=== PATIENT | male | born 1955 | race Caucasian/White ===

== ENCOUNTER 2017-02-06 08:08 | Inpatient (IN) | payer OTHER ==
[~2017-02-06] VITALS: Ht 177.8 cm; Wt 136.5 kg
[~2017-02-06 08:08] MED LIST: ACET1CAP18 PO; AMLO5TAB2 PO; FISH500C PO; MULT-135 PO
[2017-02-08] MEDS ORDERED: META48.53 PO (10:28)
[2017-02-08] MEDS ORDERED: IRON27TA PO (10:42)
[2017-02-11] MEDS ORDERED: LACTATED RINGER'S 1000 ML INJ 1,000 ML ONE (05:39)
[2017-02-11] MEDS ORDERED: DEXAMETHASONE SOD PHOS 20 MG/5 ML VIAL ONE (05:39)
[2017-02-11] MEDS ORDERED: VANCOMYCIN HCL 1000 MG VIAL ONE (05:39)
[2017-02-11] MEDS ORDERED: SODIUM CHLOR 0.9% 250 ML INJ 250 ML ONE (05:39)
[2017-02-11] MEDS ORDERED: VANCOMYCIN 1000 MG/NS 250 ML (for <70 kg) IV SCH ×2 (05:45)
[2017-02-11] MEDS ORDERED: CHLORHEXIDINE GLUCONATE 2 % 1 PACK (2 CLOTHS) TOP ONE (05:45)
[2017-02-11] MEDS ORDERED: DEXAMETHASONE SOD PHOS 4 MG/ML VIAL IV SCH (05:45)
[2017-02-11] MEDS ORDERED: POVIDONE IODINE 5% (ANTISEPSIS KIT) 4 APPLICATIONS TOPICAL ONE (05:45)
[2017-02-11 05:50] VITALS: BP 140/88; PULSE 82; RESP 20; TEMP 97.2; O2SAT 97
[2017-02-11] MEDS ORDERED: INSULIN HUMAN REGULAR 1,000 UNITS/10 ML VIAL SQ PRN (06:00)
[2017-02-11] MEDS ORDERED: CLINDAMYCIN INJ 900 MG in SODIUM CHLORIDE 0.9% INJ 100 ML IV SCH (06:00)
[2017-02-11] MEDS ORDERED: EXPAREL PERI-ARTICULAR INJECTION (TOTAL VOL. 60 ML) NERV BLOCK SCH ×2 (06:00)
[2017-02-11] MEDS ORDERED: LACTATED RINGER'S 1000 ML IV SCH (06:00)
[2017-02-11] MEDS ORDERED: METOPROLOL TARTRATE 25 MG TAB PO PRN (06:00)
[2017-02-11] MEDS ORDERED: SODIUM CHLORID 0.9% 500 ML IV SCH (06:00)
[2017-02-11] MEDS ORDERED: EXPAREL PERI-ARTICULAR INJECTION (TOTAL VOL. 60 ML) P-ARTICULR SCH ×2 (07:00)
[2017-02-11] MEDS ORDERED: TRANEXAMIC ACID IV SCH (07:00)
[2017-02-11] MEDS ORDERED: TRANEXAMIC PERI-ARTICULAR 3,000 MG/NS 100 ML P-ARTICULR SCH ×2 (07:00)
[2017-02-11] MEDS ORDERED: SODIUM CHLORIDE 0.9% IV SCH (07:00)
[2017-02-11] MEDS ORDERED: ROPIVACAINE PERI-ARTICULAR INJECTION. PERIART SCH ×5 (07:00)
[2017-02-11] MEDS ORDERED: CLINDAMYCIN PHOS 900 MG/6 ML VIAL ONE (07:21)
[2017-02-11] MEDS ORDERED: SODIUM CHLORIDE 0.9% INJ 100 ML ONE (07:22)
[2017-02-11] MEDS ORDERED: HYDR-3288 PO (07:28)
[2017-02-11] MEDS ORDERED: ASPI81CH37 CHEW (07:29)
[2017-02-11] MEDS ORDERED: ENOX40P SQ (07:29)
[2017-02-11] MEDS ORDERED: SODIUM CHLORIDE 0.9% FLUSH 5 ML FLUSH IVF PRN (07:30)
[2017-02-11] MEDS ORDERED: ZOLPIDEM TARTRATE 5 MG TAB PO PRN (07:30)
[2017-02-11] MEDS ORDERED: NALOXONE HCL 0.4 MG/ML AMP IV PRN (07:30)
[2017-02-11] MEDS ORDERED: Post-op Orders (for Pharmacy) MISC XX ONE (07:30)
[2017-02-11] MEDS ORDERED: MIDAZOLAM HCL 5 MG/5 ML VIAL ONE (07:57)
[2017-02-11] MEDS ORDERED: BISACODYL 10 MG SUPP PR PRN (08:00)
[2017-02-11] MEDS ORDERED: ACETAMINOPHEN/HYDROcodone 325 MG/7.5 MG TAB PO PRN ×2 (08:00)
[2017-02-11] MEDS ORDERED: MORPHINE SULFATE 4 MG/ML INJ IV PUSH PRN (08:00)
[2017-02-11] MEDS ORDERED: MAGNESIUM HYDROXIDE SUSP 30 ML CUP PO PRN (08:00)
[2017-02-11] MEDS ORDERED: ONDANSETRON HCL 4 MG/2 ML VIAL IVP PRN (08:00)
[2017-02-11] MEDS ORDERED: diphenhydrAMINE HCL 50 MG/ML VIAL IV PRN (08:00)
[2017-02-11] MEDS ORDERED: ALUMINUM/MAGNESIUM/SIMETH 30 ML CUP PO PRN (08:00)
[2017-02-11] MEDS ORDERED: GENTAMICIN SULFATE 80 MG/2 ML VIAL ONE (08:30)
[2017-02-11] MEDS: SODIUM CHLORIDE 0.9% FLUSH 5 ML FLUSH IVF SCH ×2 (09:00→20:22)
[2017-02-11] MEDS: amLODIPine BESYLATE 5 MG TAB PO SCH (09:00)
[2017-02-11] MEDS ORDERED: MORPHINE SULFATE 4 MG/ML INJ ONE (12:17)
[2017-02-11] MEDS ORDERED: fentaNYL CITRATE 250 MCG/5 ML AMP ONE (12:17)
[2017-02-11] MEDS: SODIUM CHLOR 0.9% 1000 ML INJ 1,000 ML IV SCH ×2 (12:18→20:26)
[2017-02-11] MEDS ORDERED: *morphine SULFATE 8 MG/ML PERIprocedure ONLY ONE (12:18)
[2017-02-11] MEDS ORDERED: BUPIVACAINE LIPOSOME PF 1.3% 20 ML VIAL ONE (12:33)
[2017-02-11] MEDS ORDERED: DEXAMETHASONE SOD PHOS PF 10 MG/ML VIAL IV ONE (12:33)
--- NOTE | 2017-02-11 12:50 | RADRPT ---
EXAM DATE/TIME: 02/11/2017 11:54 [facility] COMPARISON: No previous studies available for comparison. INDICATIONS : Post-op total right knee. MEDICAL HISTORY : None. SURGICAL HISTORY : Total knee replacement, right. ENCOUNTER: Initial ACUITY: 1 day PAIN SCORE: Non-responsive. LOCATION: Right Knee FINDINGS: Two view examination of the right knee demonstrates total knee arthroplasty. The components are appro priately positioned. Expected regional soft tissue emphysematous changes. No fracture. CONCLUSION: Appropriate postoperative appearance of the right knee status post total arthroplasty. Alexi Mcfarland MD on February 11, 2017 at 12:48 Board Certified Radiologist. This report was verified electronically.
[2017-02-11] MEDS ORDERED: PROPOFOL 200 MG/20 ML AMP IV ONE (13:00)
[2017-02-11] MEDS ORDERED: LACTATED RINGER'S 1000 ML INJ 1,000 ML IV ONE (13:00)
[2017-02-11] MEDS ORDERED: NEOSTIGMINE 3 MG/3 ML SYR IV ONE (13:00)
[2017-02-11] MEDS ORDERED: ONDANSETRON HCL 4 MG/2 ML VIAL IV PUSH ONE (13:00)
[2017-02-11] MEDS ORDERED: DO NOT ADM ANY ANTICOAGULANT DRUGS XX PRN (13:45)
[2017-02-11 14:15] VITALS: BP 105/71; PULSE 90; RESP 22; TEMP 96.5; O2SAT 95
--- NOTE | 2017-02-11 15:28 | PD.CONS ---
[facility] Request[facility] By Dr. Guzman Reason for Consult Medical management Primary Care Physician Tucker Pang MD Diagnoses: History of Present Illness The patient is a 61-year-old male who is presenting to the hospital for an elective right knee replacement. He says in 1989 he dropped 2 tons of machinery on his right knee and he required surgery which removed the cartilage out of that joint. He has done well for a while but he says over the past 5 years his right knee started to hurt him again. He says he did not try physical therapy or any steroid injections. He has been taking Tylenol for pain control. He says that his pain on average was a 7 out of 10 in severity. He says he got to the point where he was only walking 100 feet before he has to take a break and sit down. He says he has been able to go up and down stairs. The patient was seen following surgery and he said his pain was controlled. He had no acute complaints at this time. 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 Double hernia repair when he was a child Right knee surgery Active Ordered Medications Current Medications Medications (Trade) Dose Ordered Sig/Cesar Route Start Time Stop Time Status Last Admin (Betadine 7.5% Scrub) 1 applic ONCE TOP 02/11/17 05:45 02/14/17 05:44 (Hibiclens 4% Top Soln) 1 applic ONCE TOP 02/11/17 05:45 02/14/17 05:44 Amlodipine Besylate 5 mg 5 mg DAILY PO 02/11/17 09:00 (NS 1000 ml Inj) 1,000 ml @ 100 mls/hr Q10H IV 02/11/17 08:00 02/11/17 12:18 (NS Flush) 2 ml UNSCH PRN IVF 02/11/17 07:30 IV Flush 2 ml 2 ml BID IVF 02/11/17 09:00 (Vancomycin Inj/ NS 250 ml Inj) 250 ml @ 250 mls/hr Q12H IV 02/11/17 20:00 02/12/17 08:59 (Lovenox Inj) 40 mg Q24H SQ 02/12/17 11:00 (Morphine Inj) 3 mg Q3H PRN IV PUSH 02/11/17 08:00 (Deming 7.5-325 Mg) 1 tab Q4H PRN PO 02/11/17 08:00 (Deming 7.5-325 Mg) 2 tab Q4H PRN PO 02/11/17 08:00 (Theragran M Tab) 1 tab BID PO 02/12/17 21:00 04/13/17 20:59 (Zofran Inj) 4 mg Q6H PRN IVP 02/11/17 08:00 (Colace) 100 mg BID PO 02/12/17 21:00 (Mag-Al Plus Susp Liq) 30 ml Q6H PRN PO 02/11/17 08:00 (Ambien) 5 mg HS PRN PO 02/11/17 07:30 (Dulcolax Supp) 10 mg DAILY PRN TX 02/11/17 08:00 (Milk Of Magnesia Liq) 30 ml DAILY PRN PO 02/11/17 08:00 (Narcan Inj) 0.4 mg UNSCH PRN IV 02/11/17 07:30 (Benadryl Inj) 25 mg Q6H PRN IV 02/11/17 08:00 Miscellaneous Information ALL NURSING DEPARTME... UNSCH PRN XX 02/11/17 13:45 02/12/17 13:44 Family History The patient's father has diabetes Social History The patient does not smoke, drink or use illicit drugs. Physical Exam Vital Signs Vital Signs Date Time Temp Pulse Resp B/P Pulse Ox O2 Delivery O2 Flow Rate FiO2 02/11/17 14:15 96.5 90 22 105/71 95 02/11/17 13:15 97.9 94 16 147/83 94 Nasal Cannula 2 02/11/17 13:00 91 16 156/81 94 02/11/17 12:45 93 16 160/91 94 02/11/17 12:30 90 16 166/87 95 02/11/17 12:15 92 18 163/86 96 Nasal Cannula 2 02/11/17 12:00 92 18 157/91 99 02/11/17 11:45 92 12 167/100 97 Simple Mask 6 02/11/17 11:39 99.0 100 12 172/100 90 Simple Mask 6 02/11/17 05:50 97.2 82 20 140/88 97 Physical Exam GENERAL: This is a well-nourished, well-developed patient, in no apparent distress. SKIN: No rashes, ecchymoses or lesions. Cool and dry. HEAD: Atraumatic. Normocephalic. No temporal or scalp tenderness. EYES: Pupils equal round and reactive. Extraocular motions intact. No scleral icterus. No injection or drainage. ENT: Nose without bleeding, purulent drainage or septal hematoma. Throat without erythema, tonsillar hypertrophy or exudate. Uvula midline. Airway patent. NECK: Trachea midline. No JVD or lymphadenopathy. Supple, nontender, no meningeal signs. CARDIOVASCULAR: Regular rate and rhythm without murmurs, gallops, or rubs. RESPIRATORY: Clear to auscultation. Breath sounds equal bilaterally. No wheezes , rales, or rhonchi. GASTROINTESTINAL: Abdomen soft, non-tender, nondistended. No hepato-splenomegaly , or palpable masses. No guarding. MUSCULOSKELETAL: Right knee is immobilizer. Ice packs in place. Slightly tender to palpation. NEUROLOGICAL: Awake and alert. Cranial nerves II through XII intact. Motor and sensory grossly within normal limits. Five out of 5 muscle strength in all muscle groups. Normal speech. PSYCH: Mood and affect appropriate. Laboratory Laboratory Tests Test 02/11/17 05:55 Blood Type O POSITIVE Antibody Screen NEGATIVE Imaging Last Impressions Knee X-Ray 02/11/17 0726 Signed Impressions: Service Date/Time: Saturday, February 11, 2017 11:54 - CONCLUSION: Appropriate postoperative appearance of the right knee status post total arthroplasty. Alexi Mcfarland MD Assessment and Plan Assessment and Plan Right knee replacement Has had chronic right knee pain since an accident in 1989. S/p surgery 02/11. Tolerated procedure well. - pain control with a bowel regimen. - physical therapy. - follow CBC. - incentive spirometry. - weight bearing, wound care and anticoagulation per orthopedic surgery. HTN On amlodipine as an outpt. BP likely exacerbated by pain. - pain control. - continue amlodipine. - Vasotec as needed. PPx: Per orthopedic surgery. Discussed Condition With Pt, pt's family, nurse. Klever Hinojosa DO Feb 11, 2017 15:28
[2017-02-11] MEDS ORDERED: ENALAPRILAT 1.25 MG/ML VIAL IV PUSH PRN (15:30)
[2017-02-11] MEDS: MAGNESIUM HYDROXIDE SUSP 30 ML CUP PO SCH ×2 (15:45→20:23)
[2017-02-11 16:00] VITALS: BP 127/95; PULSE 94; RESP 21; TEMP 96.6; O2SAT 94
[2017-02-11 19:50] VITALS: O2SAT 98
[2017-02-11] MEDS ORDERED: METOCLOPRAMIDE HCL 10 MG/2 ML VIAL IV PRN (20:00)
[2017-02-11 20:19] VITALS: BP 133/88; PULSE 85; RESP 22; TEMP 96.3; O2SAT 95
[2017-02-11] MEDS: VANCOMYCIN INJ 1,000 MG in SODIUM CHLOR 0.9% 250 ML INJ 250 ML IV SCH (20:22)
[2017-02-11] MEDS: HYDROmorphone HCL 4 MG TAB PO PRN (20:24)
[2017-02-12 00:24] VITALS: BP 104/78; PULSE 87; RESP 24; TEMP 96.5; O2SAT 97
[2017-02-12] MEDS: BENZOCAINE-MENTHOL (SUGAR FREE) 15 MG-3.6 MG LOZENGE BUCCAL PRN ×2 (01:10→14:43)
[2017-02-12] MEDS: HYDROmorphone HCL 4 MG TAB PO PRN ×4 (02:38→22:21)
[2017-02-12] MEDS: SODIUM CHLOR 0.9% 1000 ML INJ 1,000 ML IV SCH ×2 (04:00→10:07)
[2017-02-12 04:26] VITALS: BP 124/77; PULSE 84; RESP 21; TEMP 96.7; O2SAT 96
[2017-02-12] MEDS: CHLORHEXIDINE GLUCONATE 4% SOLN 120 ML BTL TOP SCH (05:45)
[2017-02-12] MEDS: POVIDONE IODINE 7.5% SCRUB 118 ML BOTTLE TOP SCH (05:45)
[2017-02-12 06:08] LABS: HEMATOCRIT 37.8 % (39.0-51.0); MEAN CELL VOLUME 87.1 FL (80.0-100.0); MEAN CORPUSCULAR HEMOGLOBIN 30.4 PG (27.0-34.0); PLATELET COUNT 197 TH/MM3 (150-450); RED BLOOD COUNT 4.34 MIL/MM3 (4.50-5.90); RED CELL DISTRIBUTION WIDTH 13.7 % (11.6-17.2); REVIEW FLAG FINAL; WHITE BLOOD COUNT 15.9 TH/MM3 (4.0-11.0)
[2017-02-12 06:32] LABS: BICARBONATE 27.5 MEQ/L (21.0-32.0); POTASSIUM 4.3 MEQ/L (3.5-5.1)
[2017-02-12 08:00] VITALS: BP 142/77; PULSE 90; RESP 18; TEMP 97.7; O2SAT 95
--- NOTE | 2017-02-12 08:52 | PD.ORT.PN ---
Subjective Post Op Day #: 1 Subjective Remarks pain under control with dilaudid. Objective Vitals Vital Signs Date Time Temp Pulse Resp B/P Pulse Ox O2 Delivery O2 Flow Rate FiO2 02/12/17 08:00 97.7 90 18 142/77 95 02/12/17 07:10 Room Air 02/12/17 04:26 96.7 84 21 124/77 96 02/12/17 00:24 96.5 87 24 104/78 97 02/11/17 20:19 96.3 85 22 133/88 95 02/11/17 19:50 98 Nasal Cannula 2.00 02/11/17 19:26 Nasal Cannula 3.00 02/11/17 16:00 96.6 94 21 127/95 94 02/11/17 14:15 96.5 90 22 105/71 95 02/11/17 13:15 97.9 94 16 147/83 94 Nasal Cannula 2 02/11/17 13:00 91 16 156/81 94 02/11/17 12:45 93 16 160/91 94 02/11/17 12:30 90 16 166/87 95 02/11/17 12:15 92 18 163/86 96 Nasal Cannula 2 02/11/17 12:00 92 18 157/91 99 02/11/17 11:45 92 12 167/100 97 Simple Mask 6 02/11/17 11:39 99.0 100 12 172/100 90 Simple Mask 6 I/O 02/11/17 02/11/17 02/11/17 02/12/17 02/12/17 02/12/17 07:00 15:00 23:00 07:00 15:00 23:00 Intake Total 1490 ml 1054 ml 1200 ml Output Total 775 ml 200 ml 700 ml Balance 715 ml 854 ml 500 ml Intake Oral 240 ml 240 ml 360 ml IV Total 814 ml 840 ml Other 1250 ml Output Urine Total 175 ml 200 ml 700 ml Estimated Blood Loss 100 ml Other 500 ml # Bowel Movements 0 0 Result Diagram: 02/12/1733 02/12/17532 Objective Remarks in bed, nad dressing c/d/i neg homans nvi Assessment & Plan Ortho Post Op Day #: 1 Problem List: (1) Primary localized osteoarthrosis, lower leg Assessment and Plan s/p R TKA wbat daily dressing changes lovenox d/c planning to snf rx in chart 3008 signed f/up dr. reid 2 weeks Rod Kirkpatrick Feb 12, 2017 08:52
--- NOTE | 2017-02-12 08:53 | HHI.DCPOC ---
Discharge Care Plan Diagnosis: (1) Primary localized osteoarthrosis, lower leg Your Health Problems Are: Difficulty with ADL Goals to Promote Your Health * To prevent worsening of your condition and complications * To maintain your health at the optimal level Directions to Meet Your Goals Take your medications as prescribed Follow your dietary instruction Follow activity as directed Keep your appointments as scheduled Take your immunizations and boosters as scheduled If your symptoms worsen call your PCP, if no PCP go to Urgent Care Center or Emergency Room Smoking is Dangerous to Your Health. Avoid second hand smoke Call the 24-hour hour crisis hotline for domestic abuse at Rod Kirkpatrick Feb 12, 2017 08:53
[2017-02-12] MEDS ORDERED: CPMMACHINE (08:55)
[2017-02-12] MEDS ORDERED: WALKER WHEELS/F1 MIS (08:55)
[2017-02-12] MEDS ORDERED: COMMODE 3-IN-11 MIS (08:55)
[2017-02-12] MEDS: SENNOSIDES 8.6 MG TAB PO SCH (10:00)
[2017-02-12] MEDS: MAGNESIUM HYDROXIDE SUSP 30 ML CUP PO SCH ×2 (10:01→22:21)
[2017-02-12] MEDS: amLODIPine BESYLATE 5 MG TAB PO SCH (10:01)
[2017-02-12] MEDS: VANCOMYCIN INJ 1,000 MG in SODIUM CHLOR 0.9% 250 ML INJ 250 ML IV SCH (10:02)
[2017-02-12] MEDS: SODIUM CHLORIDE 0.9% FLUSH 5 ML FLUSH IVF SCH ×2 (10:03→22:21)
--- NOTE | 2017-02-12 10:33 | MP ---
cc: ALICIA FIERRO M.D. DATE OF SURGERY: 02/11/2017 PREOPERATIVE DIAGNOSIS Right knee osteoarthritis. POSTOPERATIVE DIAGNOSES Right knee osteoarthritis. PROCEDURE Right total knee arthroplasty. SURGEON Dr. Alicia Fierro [employer] DIRECT[employer] Alicia Kirkpatrick PA-C ANESTHESIA General with an adductor canal block. ESTIMATED BLOOD LOSS 400 cc. TOURNIQUET TIME 68 minutes at 300 mmHg. COMPLICATIONS None. IMPLANTS USED DePuy Attune size 8 posterior stabilized femoral component, size 7 rotating platform tibia baseplate, size 41 mm patella, size 7 mm polyethylene tibial insert. JUSTIFICATION The patient is a 61-year-old male with a history of severe end-stage osteoarthritis involving the right knee. He has severe disabling pain with standing, walking, ambulation and weightbearing activities, even severe pain at rest. He has failed greater than three months of non-operative conservative treatment to include medication therapy, injections, ambulatory assistive aids, home exercise program, activity modification and weight loss attempts. X-rays of the right knee reveal severe end-stage osteoarthritis, [id number]-im-[id number] joint space narrowing, subchondral sclerosis, subchondral cysts, osteophyte formation with varus deformity. The patient was counseled as to the risks, benefits and alternatives of a total knee arthroplasty. Risks were discussed which include but are not limited to anesthesia, bleeding, infection, damage to nerves and blood vessels, pain, stiffness, failure of components, blood clots, pulmonary embolism and even . The patient states his pain is severe. He favored the benefits over the risks and did wish to proceed with surgery. PROCEDURE IN DETAIL Written consent was obtained. The patient was identified by name, taken to the operating room and placed supine on the operating table. General anesthesia was administered as well as 900 mg of IV clindamycin and one gram of IV vancomycin. He does have a penicillin allergy. A well-padded tourniquet was placed on the right thigh. The right lower extremity was prepped and draped using isopropyl alcohol, Hibiclens solution and ChloraPrep solution. A timeout was performed. An Esmarch bandage was used to exsanguinate the right lower extremity. The tourniquet was inflated to 300 mmHg. A longitudinal incision was made over the anterior aspect of the right knee and a medial parapatellar arthrotomy was performed. The patella was everted. A patella resection guide was used to resect 10 mm of patella. A size 41 mm guide was placed. Three drill holes were placed and the 41 mm trial fit well. Attention was turned to the femur where an intramedullary guide was placed. The guide was set to remove 11 mm of distal femur 5 degrees off the anatomic valgus axis alignment. The patient did have a significant flexion contracture. An oscillating saw was used to perform the distal femoral cut. Attention was turned to the tibia where an extramedullary tibial guide was used to resect 5 mm off the lowest portion of the medial tibial plateau. The tibial guide was pinned in place and the tibial cut was performed. The 5 mm spacer block showed full extension. Attention was turned back to the femur where an AP sizing block measured a size 8. The anterior reference 3 degree external rotation guide was used to pin a size [address] Anterior, posterior and chamfer cuts were performed. A size 8 PCL box guide was pinned in place. The PCL was box cut with an oscillating saw. The medial and lateral meniscus remnants were removed as well as bone and soft tissue debris from the posterior portion of the knee. A size 7 tibia baseplate was pinned in place. The tibia was drilled and punched. The trial components were evaluated and final components cemented in place. With the 7 mm tibial insert the leg could achieve full extension to 0 degrees and flexion to approximately 140. There was no evidence of tibial lift-off. Varus-valgus balance appeared appropriate and symmetric. The patella was noted to track centrally. The tourniquet was deflated. Bovie cautery was used for hemostasis. The surgical wound was thoroughly irrigated with sterile saline pulse lavage antibiotic-impregnate solution. The arthrotomy incision was closed with #1 Vicryl suture, the subcutaneous layer with 2-0 Vicryl suture. Skin was closed with Dermabond. Sterile dressing was applied. The patient tolerated the procedure with no intraoperative complications noted. Alicia Kirkpatrick, physician commercial real estate assistant certified, was present during the entire procedure to include patient positioning and the procedure itself. The medical necessity of a physician commercial real estate assistant was indicated in this case due to the complexity of the procedure. He assisted with appropriate patient positioning and manipulation of the leg, and also traction of muscle, tendon, bone and neurovascular structures. He assisted with resection of bone and implantation of the prosthetic replacement. MD RICA Oreilly/DONALD /11:12 AM /10:15 AM
[2017-02-12] MEDS: ENOXAPARIN SODIUM 40 MG/0.4 ML SYRINGE SQ SCH (11:25)
[2017-02-12 12:20] VITALS: BP 130/76; PULSE 84; RESP 16; TEMP 97.2; O2SAT 97
[2017-02-12 16:30] VITALS: BP 136/59; PULSE 79; RESP 16; TEMP 97.3; O2SAT 96
[2017-02-12 20:18] VITALS: BP 143/88; PULSE 91; RESP 22; TEMP 98.6; O2SAT 92
[2017-02-12] MEDS: MULTIVITAMINS/MINERALS THERAPEUTIC TAB PO SCH (22:21)
[2017-02-12] MEDS: DOCUSATE SODIUM 100 MG CAP PO SCH (22:21)
[2017-02-13 00:21] VITALS: BP 154/75; PULSE 99; RESP 21; TEMP 99.4; O2SAT 94
[2017-02-13] MEDS: POVIDONE IODINE 7.5% SCRUB 118 ML BOTTLE TOP SCH (03:08)
[2017-02-13] MEDS: CHLORHEXIDINE GLUCONATE 4% SOLN 120 ML BTL TOP SCH (03:08)
[2017-02-13] MEDS: HYDROmorphone HCL 4 MG TAB PO PRN ×5 (04:40→21:29)
[2017-02-13 06:20] LABS: MEAN CELL VOLUME 87.3 FL (80.0-100.0); MEAN CORPUSCULAR HEMOGLOBIN 30.3 PG (27.0-34.0); MEAN CORPUSCULAR HGB CONC 34.7 % (32.0-36.0); PLATELET COUNT 195 TH/MM3 (150-450); RED BLOOD COUNT 4.12 MIL/MM3 (4.50-5.90); RED CELL DISTRIBUTION WIDTH 13.7 % (11.6-17.2); REVIEW FLAG FINAL; WHITE BLOOD COUNT 12.7 TH/MM3 (4.0-11.0)
[2017-02-13 07:21] LABS: POTASSIUM 4.3 MEQ/L (3.5-5.1)
[2017-02-13 08:00] VITALS: BP 127/75; PULSE 84; RESP 20; TEMP 95.5; O2SAT 95
--- NOTE | 2017-02-13 08:18 | PD.ORT.PN ---
Subjective Post Op Day #: 2 Subjective Remarks pain under control with dilaudid. feels he did too much on the cpm yesterday. Objective Vitals Vital Signs Date Time Temp Pulse Resp B/P Pulse Ox O2 Delivery O2 Flow Rate FiO2 02/13/17 00:21 99.4 99 21 154/75 94 02/12/17 20:18 98.6 91 22 143/88 92 02/12/17 19:10 Room Air 02/12/17 16:30 97.3 79 16 136/59 96 02/12/17 12:20 97.2 84 16 130/76 97 I/O 02/12/17 02/12/17 02/12/17 02/13/17 02/13/17 02/13/17 07:00 15:00 23:00 07:00 15:00 23:00 Intake Total 1200 ml 1670 ml 240 ml 480 ml Output Total 700 ml 300 ml 350 ml Balance 500 ml 1670 ml -60 ml 130 ml Intake Oral 360 ml 980 ml 240 ml 480 ml IV Total 840 ml 690 ml Output Urine Total 700 ml 300 ml 350 ml # Voids 4 1 # Bowel Movements 0 0 0 Result Diagram: 02/13/17 0520 02/13/17 0520 Objective Remarks in chair eating, nad incision no erythema, no drainage neg homans nvi Assessment & Plan Ortho Post Op Day #: 2 Problem List: (1) Primary localized osteoarthrosis, lower leg Assessment and Plan s/p R TKA wbat daily dressing changes lovenox OOB and IS d/c planning to snf rx in chart 3006 signed f/up dr. reid 2 weeks Rod Kirkpatrick Feb 13, 2017 08:18
[2017-02-13] MEDS: POLYETHYLENE GLYCOL 17 GM PKG PO SCH (09:05)
[2017-02-13] MEDS: DOCUSATE SODIUM 100 MG CAP PO SCH ×2 (09:06→21:26)
[2017-02-13] MEDS: SENNOSIDES 8.6 MG TAB PO SCH (09:06)
[2017-02-13] MEDS: MAGNESIUM HYDROXIDE SUSP 30 ML CUP PO SCH ×2 (09:06→21:27)
[2017-02-13] MEDS: amLODIPine BESYLATE 5 MG TAB PO SCH (09:07)
[2017-02-13] MEDS: SODIUM CHLORIDE 0.9% FLUSH 5 ML FLUSH IVF SCH ×2 (09:07→21:00)
[2017-02-13] MEDS: MULTIVITAMINS/MINERALS THERAPEUTIC TAB PO SCH ×2 (09:07→21:26)
[2017-02-13 09:16] VITALS: O2SAT 95
[2017-02-13] MEDS: SODIUM CHLOR 0.9% 1000 ML INJ 1,000 ML IV SCH ×4 (10:00→21:30)
[2017-02-13] MEDS: ENOXAPARIN SODIUM 40 MG/0.4 ML SYRINGE SQ SCH (10:44)
[2017-02-13 12:00] VITALS: BP 120/82; PULSE 88; RESP 20; TEMP 99.8; O2SAT 94
[2017-02-13 17:00] VITALS: BP 162/89; PULSE 94; RESP 20; TEMP 99.1; O2SAT 95
[2017-02-13 20:22] VITALS: BP 127/64; PULSE 80; RESP 22; TEMP 97.8; O2SAT 95
[2017-02-14 00:21] VITALS: BP 120/73; PULSE 84; RESP 20; TEMP 98.9; O2SAT 95
[2017-02-14] MEDS: HYDROmorphone HCL 4 MG TAB PO PRN ×5 (01:30→16:01)
[2017-02-14 06:08] LABS: HEMATOCRIT 37.5 % (39.0-51.0); MEAN CELL VOLUME 87.9 FL (80.0-100.0); MEAN CORPUSCULAR HEMOGLOBIN 29.5 PG (27.0-34.0); MEAN CORPUSCULAR HGB CONC 33.5 % (32.0-36.0); PLATELET COUNT 185 TH/MM3 (150-450); RED BLOOD COUNT 4.27 MIL/MM3 (4.50-5.90); RED CELL DISTRIBUTION WIDTH 13.4 % (11.6-17.2); REVIEW FLAG FINAL; WHITE BLOOD COUNT 11.8 TH/MM3 (4.0-11.0)
[2017-02-14 08:00] VITALS: BP 133/81; PULSE 91; RESP 20; TEMP 99.4; O2SAT 94
--- NOTE | 2017-02-14 08:04 | PD.ORT.PN ---
Subjective Post Op Day #: 3 Subjective Remarks pain under control with dilaudid. slept well last night. Objective Vitals Vital Signs Date Time Temp Pulse Resp B/P Pulse Ox O2 Delivery O2 Flow Rate FiO2 02/14/17 06:21 18 02/14/17 00:21 98.9 84 20 120/73 95 02/13/17 21:05 Room Air 02/13/17 20:22 97.8 80 22 127/64 95 02/13/17 17:00 99.1 94 20 162/89 95 02/13/17 12:00 99.8 88 20 120/82 94 02/13/17 09:16 95 21 I/O 02/13/17 02/13/17 02/13/17 02/14/17 02/14/17 02/14/17 07:00 15:00 23:00 07:00 15:00 23:00 Intake Total 480 ml 480 ml 720 ml 720 ml Output Total 350 ml 1100 ml 1100 ml Balance 130 ml -620 ml 720 ml -380 ml Intake Oral 480 ml 480 ml 720 ml 720 ml Output Urine Total 350 ml 1100 ml 1100 ml # Voids 1 4 # Bowel Movements 0 0 0 1 Result Diagram: 02/14/17 0542 02/14/17 0542 Objective Remarks in bed, nad dressing c/d/i neg homans nvi Assessment & Plan Ortho Post Op Day #: 3 Problem List: (1) Primary localized osteoarthrosis, lower leg Assessment and Plan s/p R TKA wbat daily dressing changes lovenox OOB and IS d/c planning to snf - cleared for d/c today rx in chart 3008 signed f/up dr. reid 2 weeks Rod Kirkpatrick Feb 14, 2017 08:04
[2017-02-14] MEDS: MULTIVITAMINS/MINERALS THERAPEUTIC TAB PO SCH (09:26)
[2017-02-14] MEDS: DOCUSATE SODIUM 100 MG CAP PO SCH (09:26)
[2017-02-14] MEDS: ENOXAPARIN SODIUM 40 MG/0.4 ML SYRINGE SQ SCH (09:27)
[2017-02-14] MEDS: amLODIPine BESYLATE 5 MG TAB PO SCH (09:27)
[2017-02-14] MEDS: POLYETHYLENE GLYCOL 17 GM PKG PO SCH (09:27)
[2017-02-14 12:00] VITALS: BP 142/82; PULSE 96; RESP 20; TEMP 99.3; O2SAT 98
[2017-02-14] MEDS ORDERED: DILA2TAB2 PO (13:23)
--- NOTE | 2017-02-20 08:37 | MD ---
cc: ALICIA GUZMAN ADMISSION DATE: 02/11/2017 DISCHARGE DATE: 02/14/2017 ADMISSION DIAGNOSIS Severe degenerative osteoarthritis right knee DISCHARGE DIAGNOSIS Severe degenerative osteoarthritis right knee HISTORY OF PRESENT ILLNESS Mr. Izaguirre is a 61-year-old male who presented to the [facility] for evaluation by Dr. Alicia Guzman regarding his severe and progressive right knee pain. The patient states the pain has been bothering him for many years and currently is inhibiting his activities of daily living. He rates his pain as a severe aching sensation aggravated by any type of weightbearing activity. He has no alleviating factors, although in the past, he has tried medications, bracing, assistive devices, physical therapy, home exercise program, weight loss attempts and even corticosteroid injections without relief of symptoms. He does have x-ray evidence of severe degenerative osteoarthritis of the right knee. While in the office, the patient was counseled on his diagnosis and treatment options. The risks, benefits, and indications all were discussed in great detail. The patient did elect to proceed with surgical intervention to include a right total knee arthroplasty. Date of surgery 02/19/2017, right total knee arthroplasty. After surgery, the patient admitted to [facility] where he received appropriate medical management, pain control, DVT prophylaxis, as well as physical therapy. DISCHARGE Once being discharged from the hospital, the patient was cleared to go to a fdc facility. He is in stable condition. The patient may weight-bear as tolerated. He is to receive daily dressing changes and has been instructed on appropriate wound care management. The patient has been provided prescriptions for pain control, as well as DVT prophylaxis medication. He has also been provided a follow-up appointment to see Dr. Alicia Guzman in the office approximately two weeks from his date of surgery. The patient has asked appropriate questions which have all been answered. The patient is cleared for discharge. Dictated by TEVIN Antonio MD RICA Oreilly/BERNARDINO /8:15 AM /8:35 AM
== END 2017-02-14 18:37 | DRG 470 ==
LOC: HSDI 02-11 05:08 → N06A 02-11 14:05
PROVIDERS: ADMIT Orthopaedic Surgery Sports Medicine; ATTEND Orthopaedic Surgery Sports Medicine
PROC: 3E0T3CZ (ICD-10-PCS; 2017-02-11)
PROC: 0SRC0J9 Replacement of Right Knee Joint with Synthetic Substitute, Cemented, Open Approach (ICD-10-PCS; principal; 2017-02-11 08:53)
DX: M17.11 Unilateral primary osteoarthritis, right knee (principal); I10 Essential (primary) hypertension
CPT/HCPCS: 73560; 80048; 85027; 86850; 86900; 86901; 87641; 94150; C1776; C9290; J1100; J1580; J1650; J2250; J2270; J2405; J2710; J2765; J3010; J3370; J7030; J7050; J7120; L1830

== ENCOUNTER 2017-07-09 16:17 | Inpatient (IN) | payer OTHER ==
[~2017-07-09] VITALS: Ht 177.8 cm; Wt 135.3 kg
[~2017-07-09 16:17] MED LIST changes: -ACET1CAP18 PO; +ASPI81CH37 CHEW; -FISH500C PO; -MULT-135 PO
[2017-07-12] MEDS ORDERED: MULTTAB67 PO (13:07)
[2017-07-15] MEDS ORDERED: HYDR-3288 PO (08:36)
[2017-07-15] MEDS ORDERED: ENOX40P SQ (08:36)
[2017-07-15] MEDS ORDERED: ASPI81CH37 CHEW (08:37)
[2017-07-15] MEDS ORDERED: diphenhydrAMINE HCL 50 MG/ML VIAL IV PRN (08:45)
[2017-07-15] MEDS ORDERED: ACETAMINOPHEN/HYDROcodone 325 MG/7.5 MG TAB PO PRN ×2 (08:45)
[2017-07-15] MEDS ORDERED: MORPHINE SULFATE 4 MG/ML INJ IV PUSH PRN (08:45)
[2017-07-15] MEDS ORDERED: ZOLPIDEM TARTRATE 5 MG TAB PO PRN (08:45)
[2017-07-15] MEDS ORDERED: SODIUM CHLORIDE 0.9% FLUSH 5 ML FLUSH IVF PRN (08:45)
[2017-07-15] MEDS ORDERED: BISACODYL 10 MG SUPP PR PRN (08:45)
[2017-07-15] MEDS ORDERED: Post-op Orders (for Pharmacy) MISC XX ONE (08:45)
[2017-07-15] MEDS ORDERED: BUPIVACAINE LIPOSOME PF 1.3% 20 ML VIAL ONE (09:06)
[2017-07-15] MEDS ORDERED: VANCOMYCIN HCL 1000 MG VIAL ONE (09:13)
[2017-07-15] MEDS ORDERED: CLINDAMYCIN PHOS 900 MG/6 ML VIAL ONE (09:13)
[2017-07-15] MEDS ORDERED: DEXAMETHASONE SOD PHOS 20 MG/5 ML VIAL ONE (09:13)
[2017-07-15] MEDS ORDERED: SODIUM CHLORIDE 0.9% INJ 100 ML ONE (09:13)
[2017-07-15] MEDS ORDERED: SODIUM CHLOR 0.9% 250 ML INJ 0 ML ONE (09:13)
[2017-07-15] MEDS ORDERED: LACTATED RINGER'S 1000 ML INJ 1,000 ML ONE (09:15)
[2017-07-15] MEDS ORDERED: VANCOMYCIN 1000 MG/NS 250 ML (for <70 kg) IV SCH ×2 (09:30)
[2017-07-15] MEDS ORDERED: POVIDONE IODINE 7.5% SCRUB 118 ML BOTTLE TOPICAL ONE (09:30)
[2017-07-15] MEDS ORDERED: CLINDAMYCIN 900 MG/NS 100 ML IV SCH ×2 (09:30)
[2017-07-15] MEDS ORDERED: CHLORHEXIDINE GLUCONATE 4% SOLN 120 ML BTL TOPICAL ONE (09:30)
[2017-07-15] MEDS ORDERED: CHLORHEXIDINE GLUCONATE 2 % 1 PACK (2 CLOTHS) TOPICAL PRN (10:00)
[2017-07-15] MEDS ORDERED: INSULIN HUMAN REGULAR 1,000 UNITS/10 ML VIAL SQ PRN (10:00)
[2017-07-15] MEDS ORDERED: SODIUM CHLORID 0.9% 500 ML IV PRN (10:00)
[2017-07-15] MEDS ORDERED: TRANEXAMIC ACID IV ONE (10:00)
[2017-07-15] MEDS ORDERED: ROPIVACAINE PERI-ARTICULAR INJECTION. P-ARTICULR SCH ×5 (10:00)
[2017-07-15] MEDS ORDERED: SODIUM CHLORIDE 0.9% IV ONE (10:00)
[2017-07-15] MEDS ORDERED: DEXAMETHASONE SOD PHOS 20 MG/5 ML VIAL IV ONE (10:00)
[2017-07-15] MEDS ORDERED: METOPROLOL TARTRATE 25 MG TAB PO PRN (10:00)
[2017-07-15] MEDS ORDERED: LACTATED RINGER'S 1000 ML IV PRN (10:00)
[2017-07-15] MEDS ORDERED: POVIDONE IODINE 5% (ANTISEPSIS KIT) 4 APPLICATIONS EACH NARE PRN (10:00)
[2017-07-15] MEDS ORDERED: TRANEXAMIC PERI-ARTICULAR 3,000 MG/NS 100 ML P-ARTICULR SCH ×2 (10:00)
[2017-07-15] MEDS ORDERED: ACETAMINOPHEN 1000 MG/100 ML VIAL IV ONE (11:11)
[2017-07-15] MEDS ORDERED: FAMOTIDINE 20 MG/2 ML VIAL ONE (11:31)
[2017-07-15] MEDS ORDERED: MIDAZOLAM HCL 2 MG/2 ML VIAL ONE (11:31)
[2017-07-15] MEDS ORDERED: LACTATED RINGER'S 1000 ML INJ 1,000 ML IV ONE (12:46)
[2017-07-15] MEDS ORDERED: NEOSTIGMINE 3 MG/3 ML SYR IV ONE (12:46)
[2017-07-15] MEDS ORDERED: ONDANSETRON HCL 4 MG/2 ML VIAL IV PUSH ONE (12:46)
[2017-07-15] MEDS ORDERED: PROPOFOL 200 MG/20 ML AMP IV ONE (12:46)
[2017-07-15] MEDS ORDERED: DO NOT ADM ANY ANTICOAGULANT DRUGS PRN (13:54)
[2017-07-15] MEDS ORDERED: fentaNYL CITRATE 250 MCG/5 ML AMP ONE (14:16)
[2017-07-15] MEDS: SODIUM CHLOR 0.9% 1000 ML INJ 1,000 ML IV SCH ×2 (14:25→22:15)
[2017-07-15] MEDS ORDERED: *morphine SULFATE 8 MG/ML PERIprocedure ONLY ONE (14:40)
--- NOTE | 2017-07-15 15:20 | RADRPT ---
EXAM DATE/TIME: 07/15/2017 14:40 [facility] COMPARISON: No previous studies available for comparison. INDICATIONS : Post op left knee MEDICAL HISTORY : None. SURGICAL HISTORY : None. ENCOUNTER: Initial ACUITY: 1 day PAIN SCORE: 9/10 LOCATION: Left knee FINDINGS: 2 views of the knee show a total knee prosthesis in good position. No fracture or dislocation is obse rved. Soft tissue swelling is noted. Air and fluid noted within the joint. Surgical clips within the prepatellar soft tissues. CONCLUSION: Total arthroplasty in good position. Nelson Stevens Jr., MD on July 15, 2017 at 15:14 Board Certified Radiologist. This report was verified electronically.
--- NOTE | 2017-07-15 15:30 | MP ---
cc: ALICIA FIERRO M.D. DATE OF SURGERY: 07/15/2017 PREOPERATIVE DIAGNOSIS Left knee osteoarthritis. POSTOPERATIVE DIAGNOSIS Left knee osteoarthritis. PROCEDURE Left total knee arthroplasty. SURGEON Dr. Alicia Fierro. [employer]BER TEVIN Cooper ANESTHESIA General with adductor canal femoral nerve block. ESTIMATED BLOOD LOSS 50 ccs. COMPLICATIONS None. IMPLANTS USED DePuy Attune size 7 posterior stabilized femoral component, size 8 rotating platform tibia baseplate, size 7 mm polyethylene tibial insert, size 41 patella. JUSTIFICATION This patient is a 61-year-old male with history of severe end-stage osteoarthritis involving the left knee. He has severe disabling pain with standing, walking, ambulation, weight-bear Activities, even severe pain at rest. He has failed greater than 3 months of nonoperative conservative treatment to include medication therapy, injections, ambulatory assisted aids, home exercise program, activity modification and weight loss. X-rays of the left knee reveal severe endstage osteoarthritis, [id number] joint space narrowing, subchondral sclerosis, subchondral cyst, osteophyte formation with varus deformity. The patient was counseled as to the risks, benefits and alternatives to a total knee arthroplasty. The risks were discussed which include but not limited to anesthesia, bleeding, infection, damage to nerves, blood vessels, pain, stiffness, failure of components, blood clots, pulmonary embolism, even . The patient's pain is severe, he favored the benefits over the risks and did wish to proceed with surgery. PROCEDURE IN DETAIL Written consent was obtained. The patient was identified by name, taken to the operating room and placed supine on the operating table. General anesthesia was administered as well as 2 grams of IV Ancef and 1 gram of IV vancomycin. A well-padded tourniquet was placed in the left thigh, left lower extremity was prepped and draped using isopropyl alcohol, Hibiclens solution and Chloraprep solution. After time-out was performed an Esmarch bandage was used to exsanguinate the left lower extremity. Tourniquet was inflated to 275 mmHg. A longitudinal incision was made over the anterior aspect of the left knee. A medial parapatellar arthrotomy was performed. The patella was everted, patellar resection guide was used to resect 9 mm of patella, size 41 mm guide was placed. Three drill holes were placed and a 41 mm patella trial fit well. Attention was turned to the femur where intramedullary guide blu was placed and the distal femoral guide was set to remove 10 mm of distal femur, 5 degrees off the anatomic valgus axis alignment. An oscillating saw was used to perform the distal femoral cut. Attention was turned to the tibia where an extramedullary tibial guide was set to remove 5 mm off lowest portion of the medial tibial plateau. Tibia guide was pinned in place and tibia cut was performed. A 5 mm spacer block showed full extension. Attention was turned back to the femur where AP sizing block measured a size 7, anterior reference 3 degree external rotation guide was used to pin a size [address] The anterior, posterior and chamfer cuts were performed. A size 7 PCL box was pinned in place. PCL was boxed out with an oscillating saw. The medial and lateral meniscus remnants were removed as well as bone and soft tissue debris from posterior portion of the knee. A size 8 tibia baseplate was pinned in place. The tibia was drilled and punched. Trial components were evaluated and final components cemented in place. With the current components the leg could achieve full extension 0 degrees, flexion to 140. No evidence of tibial lift-off, varus-valgus balance appeared appropriate and symmetric and the patella was noted to track centrally. Tourniquet was deflated. Bovie cautery was used for hemostasis. The knee was again thoroughly irrigated with sterile saline pulse lavage antibiotic impregnated solution. The arthrotomy incision was closed with #1 Vicryl suture, subcutaneous layer with 2-0 Vicryl suture, skin was closed with Dermabond. Sterile dressing was applied. The patient tolerated the procedure well. There were no intraoperative complications noted. Gómez Kirkpatrick, physician assistant wrestling coach certified was present during the entire procedure to include patient positioning, the procedure itself. The medical necessity of physician assistant wrestling coach was indicated in this case due to the complexity of the procedure. He assisted with appropriate manipulation of the leg and also retraction of muscles, tendon, bone, neurovascular Structures. He assisted with preparation of bone and also implantation of prosthetic replacement. MD RICA Oreilly/SABINA /1:20 PM /3:00 PM
--- NOTE | 2017-07-15 15:47 | PD.CONS ---
HPI Service [facility] Hospitalists Consult Requested By Orthopedic service Reason for Consult Medical management Primary Care Physician Tucker Pang MD Diagnoses: History of Present Illness Written by Marely Esquivel PA-C acting as scribe for Dr. Simmons on 07/15/17 at 15:35. This is a 61-year-old male with past medical history significant for osteoarthritis who failed attempts at conservative management and underwent an elective left total knee replacement surgery performed by Dr. Guzman who has consulted hospitalist services for medical management of patient's chronic medical conditions including hypertension. Patient seen postoperatively in PACU. Patient states he is comfortable at present. He denies any complaints of pain. Tolerating CPM unit. Patient denies any fever or chills. He reports some nausea but no vomiting. Denies any chest pain or shortness of breath. All other systems reviewed and are negative. Review of Systems Except as stated in HPI: all other systems reviewed are Neg Past Family Social History Allergies: Coded Allergies: penicillin G (Unverified Allergy, Severe, RASH, 07/09/17) codeine (Unverified Allergy, Intermediate, Rash, 07/09/17) Past Medical History Hypertension History of MRSA History of sarcoma, left shoulder History of cervical fracture April 2016 treated nonoperatively Past Surgical History Sarcoma resection left shoulder Double hernia repair when he was a child Right total knee replacement January 2017 Reported Medications Amlodipine 5 mg daily Aspirin 81 mg daily [place] 7.5/325 mg 1 by mouth every 6 hours when necessary Multivitamin daily Active Ordered Medications Current Medications Medications (Trade) Dose Ordered Sig/Cesar Route Start Time Stop Time Status Last Admin (Norvasc) 5 mg DAILY PO 07/15/17 10:00 Sodium Chloride 1,000 ml @ 100 mls/hr Q10H IV 07/15/17 10:30 07/15/17 14:25 (NS Flush) 2 ml UNSCH PRN IVF 07/15/17 08:45 (NS Flush) 2 ml BID IVF 07/15/17 09:00 Vancomycin HCl 1000 mg/Sodium Chloride 250 ml @ 250 mls/hr Q12H IV 07/15/17 22:00 07/16/17 10:59 (Lovenox Inj) 40 mg Q24H SQ 07/16/17 13:00 07/25/17 13:01 (Morphine Inj) 3 mg Q3H PRN IV PUSH 07/15/17 08:45 ([place] 7.5-325 Mg) 1 tab Q4H PRN PO 07/15/17 08:45 ([place] 7.5-325 Mg) 2 tab Q4H PRN PO 07/15/17 08:45 (Theragran M Tab) 1 tab BID PO 07/16/17 21:00 09/14/17 20:59 (Zofran Inj) 4 mg Q6H PRN IVP 07/15/17 08:45 (Colace) 100 mg BID PO 07/16/17 21:00 (Ambien) 5 mg HS PRN PO 07/15/17 08:45 (Dulcolax Supp) 10 mg DAILY PRN [place] 07/15/17 08:45 (Benadryl Inj) 25 mg Q6H PRN IV 07/15/17 08:45 Vancomycin HCl 1000 mg/Sodium Chloride 250 ml @ 250 mls/hr ASSOCIATE CONSULTING ENGINEER IV 07/15/17 09:30 07/15/17 23:59 07/15/17 10:30 Clindamycin Phosphate 900 mg/ Sodium Chloride 106 ml @ 212 mls/hr ASSOCIATE CONSULTING ENGINEER IV 07/15/17 09:30 07/15/17 23:59 07/15/17 10:19 Ropivacaine 24.63 ml/Ketorolac Tromethamine 30 mg/Epinephrine HCl 0.5 mg/ Clonidine 80 mcg/ Sodium Chloride 100 ml @ 200 mls/hr ONCE P-ARTICULR 07/15/17 10:00 07/16/17 09:59 07/15/17 12:59 Tranexamic Acid 3000 mg/Sodium Chloride 130 ml @ 260 mls/hr ONCE P-ARTICULR 07/15/17 10:00 07/15/17 16:00 07/15/17 12:58 Lactated Ringer's 1,000 ml @ 30 mls/hr Q24H PRN IV 07/15/17 10:00 07/18/17 09:59 Sodium Chloride 500 ml @ 30 mls/hr [id number] PRN IV 07/15/17 10:00 07/18/17 09:59 (Lopressor) 25 mg ASSOCIATE CONSULTING ENGINEER PRN PO 07/15/17 10:00 07/18/17 09:59 (Betadine 5% Antisepsis Kit) 1 applic ASSOCIATE CONSULTING ENGINEER PRN EACH NARE 07/15/17 10:00 07/18/17 09:59 07/15/17 09:00 (Chlorhexidine 2% Cloth) 3 pack ASSOCIATE CONSULTING ENGINEER PRN TOPICAL 07/15/17 10:00 07/18/17 09:59 07/15/17 08:55 (NovoLIN R INJ) See Protocol Table ... ASSOCIATE CONSULTING ENGINEER PRN SQ 07/15/17 10:00 07/18/17 09:59 Miscellaneous Information ALL NURSING DEPARTME... UNSCH PRN .XX 07/15/17 13:54 07/16/17 13:53 Family History Father, diabetes Both parents, CHF Social History Patient denies any tobacco use, EtOH consumption or illicit drug use. Physical Exam Vital Signs Vital Signs Date Time Temp Pulse Resp B/P (MAP) Pulse Ox O2 Delivery O2 Flow Rate FiO2 07/15/17 15:15 84 16 113/61 (78) 97 Nasal Cannula 3 07/15/17 15:00 84 16 125/64 (84) 99 Nasal Cannula 3 07/15/17 14:45 87 16 117/73 (88) 93 Nasal Cannula 3 07/15/17 14:30 97 20 125/72 (89) 93 Nasal Cannula 3 07/15/17 14:15 97 18 101/50 (67) 94 Nasal Cannula 3 07/15/17 14:00 97 16 100/55 (70) 95 Nasal Cannula 3 07/15/17 13:54 98.1 99 14 96/50 (65) 94 Nasal Cannula 3 07/15/17 09:03 98.1 92 20 182/99 (126) 97 Physical Exam GENERAL: This is a well-nourished, well-developed patient, in no apparent distress. Awake and alert. Lying in bed in PACU. SKIN: No rashes, ecchymoses or lesions. Cool and dry. HEAD: Atraumatic. Normocephalic. No temporal or scalp tenderness. EYES: Pupils equal round and reactive. Extraocular motions intact. No scleral icterus. No injection or drainage. ENT: Nose without bleeding or purulent drainage. Throat without erythema, tonsillar hypertrophy or exudate. Uvula midline. Airway patent. NECK: Trachea midline. No lymphadenopathy. Supple, nontender, no meningeal signs. CARDIOVASCULAR: Regular rate and rhythm without murmurs, gallops, or rubs. RESPIRATORY: Clear to auscultation. Breath sounds equal bilaterally. No wheezes , rales, or rhonchi. GASTROINTESTINAL: Abdomen soft, non-tender, nondistended. No hepato-splenomegaly , or palpable masses. No guarding. MUSCULOSKELETAL: s/p Left total knee arthroplasty. Left lower extremity in postop dressing which is clean, dry and intact. Tolerating CPM. NEUROLOGICAL: Awake and alert. Able to move all extremities except for LLE in CPM. Normal speech. Assessment and Plan Assessment and Plan 61-year-old male with past medical history significant for osteoarthritis who failed attempts at conservative management and underwent an elective left total knee replacement surgery performed by Dr. Guzman who has consulted hospitalist services for medical management of patient's chronic medical conditions including hypertension and chronic anemia. Osteoarthritis left knee failed attempts at conservative treatment status post elective left total knee replacement surgery Management per orthopedic team Began participation with PT/OT Pain management with [place] and IV morphine as needed. Patient underwent preoperative nerve block. Bowel regimen. Monitor H&H postoperatively Postop wound care Hypertension, controlled Continue patient's home dose of amlodipine 5 mg by mouth daily Monitor BP DVT prophylaxis Per orthopedic - Lovenox 40 mg subcutaneous every 2410 doses This note was transcribed by scribe [Marely Esquivel]. I, Dr. Waqar Simmons personally performed the history, physical exam, and medical decision making; and confirmed the accuracy of the information in the transcribed note. Authenticated by Dr. Waqar Simmons on 07/15/17 at 15:55. Marely Esquivel Jul 15, 2017 15:47 Waqar Simmons MD Jul 15, 2017 15:55
[2017-07-15] MEDS: ONDANSETRON HCL 4 MG/2 ML VIAL IVP PRN ×2 (16:14→22:14)
[2017-07-15] MEDS ORDERED: *ONDANSETRON 4 MG VIAL PERIprocedural Use ONLY ONE (16:19)
[2017-07-15 20:30] VITALS: BP 145/83; PULSE 76; RESP 18; TEMP 96.5; O2SAT 98
[2017-07-15] MEDS: SODIUM CHLORIDE 0.9% FLUSH 5 ML FLUSH IVF SCH (21:00)
[2017-07-15] MEDS ORDERED: HYDROmorphone HCL PF 1 MG/ML VIAL IV PRN (22:00)
[2017-07-15] MEDS: VANCOMYCIN INJ 1,000 MG in SODIUM CHLOR 0.9% 250 ML INJ 250 ML IV SCH (22:15)
[2017-07-15] MEDS: HYDROmorphone HCL 2 MG TAB PO SCH (22:16)
[2017-07-16] VITALS (7 sets, daily range): BP systolic 130–155; BP diastolic 75–86; PULSE 80–93; RESP 17–18; TEMP 96.3–97.8; O2SAT 94–98
[2017-07-16] MEDS ORDERED: HYDROmorphone HCL 2 MG TAB PO SCH
[2017-07-16] MEDS: HYDROmorphone HCL 2 MG TAB PO SCH (05:01)
[2017-07-16 07:45] LABS: HEMATOCRIT 39.2 % (39.0-51.0); MEAN CELL VOLUME 85.4 FL (80.0-100.0); MEAN CORPUSCULAR HEMOGLOBIN 28.4 PG (27.0-34.0); MEAN CORPUSCULAR HGB CONC 33.3 % (32.0-36.0); PLATELET COUNT 233 TH/MM3 (150-450); RED BLOOD COUNT 4.59 MIL/MM3 (4.50-5.90); RED CELL DISTRIBUTION WIDTH 15.5 % (11.6-17.2); REVIEW FLAG FINAL; WHITE BLOOD COUNT 18.2 TH/MM3 (4.0-11.0)
[2017-07-16 08:13] LABS: BICARBONATE 24.9 MEQ/L (21.0-32.0)
--- NOTE | 2017-07-16 08:15 | PD.ORT.PN ---
Subjective Post Op Day #: 1 Subjective Remarks painful thigh. Objective Vitals Vital Signs Date Time Temp Pulse Resp B/P (MAP) Pulse Ox O2 Delivery O2 Flow Rate FiO2 07/16/17 07:45 96.3 89 18 130/77 (94) 94 07/16/17 04:25 96.9 80 17 133/76 (95) 97 07/16/17 04:00 Room Air 07/16/17 00:40 96.8 80 18 148/76 (100) 97 07/16/17 00:00 Room Air 07/15/17 20:30 96.5 76 18 145/83 (103) 98 07/15/17 20:30 Room Air 07/15/17 20:00 80 16 126/78 (94) 99 Room Air 07/15/17 19:00 83 16 141/71 (94) 99 Nasal Cannula 2 07/15/17 18:00 81 16 118/69 (85) 99 Nasal Cannula 2 07/15/17 17:00 81 16 115/64 (81) 96 Nasal Cannula 2 07/15/17 16:45 81 16 123/66 (85) 98 Nasal Cannula 2 07/15/17 16:30 83 16 116/65 (82) 92 Room Air 07/15/17 16:15 98 16 119/62 (81) 96 Room Air 07/15/17 16:00 87 16 130/75 (93) 99 Nasal Cannula 2 07/15/17 15:45 84 16 126/70 (88) 98 Nasal Cannula 3 07/15/17 15:30 86 16 119/65 (83) 97 Nasal Cannula 3 07/15/17 15:15 84 16 113/61 (78) 97 Nasal Cannula 3 07/15/17 15:00 84 16 125/64 (84) 99 Nasal Cannula 3 07/15/17 14:45 87 16 117/73 (88) 93 Nasal Cannula 3 07/15/17 14:30 97 20 125/72 (89) 93 Nasal Cannula 3 07/15/17 14:15 97 18 101/50 (67) 94 Nasal Cannula 3 07/15/17 14:00 97 16 100/55 (70) 95 Nasal Cannula 3 07/15/17 13:54 98.1 99 14 96/50 (65) 94 Nasal Cannula 3 07/15/17 09:03 98.1 92 20 182/99 (126) 97 I/O 07/15/17 07/15/17 07/15/17 07/16/17 07/16/17 07/16/17 06:59 14:59 22:59 06:59 14:59 22:59 Intake Total 350 ml 1050 ml 1268 ml Output Total 850 ml 450 ml Balance 350 ml 200 ml 818 ml Intake Oral 600 ml 240 ml IV Total 350 ml 450 ml 1028 ml Output Urine Total 850 ml 450 ml # Bowel Movements 0 0 Result Diagram: 07/16/17 0711 07/16/17 0711 Objective Remarks in bed, nad dressing c/d/i neg homans nvi Assessment & Plan Ortho Post Op Day #: 1 Problem List: Assessment and Plan s/p L TKA wbat daily dressing changes lovenox dilaudid, unable to take hydrocodone d/c planning home with c and pt f/up dr. reid 2 weeks Rod Kirkpatrick Jul 16, 2017 08:15
--- NOTE | 2017-07-16 08:21 | HHI.DCPOC ---
Discharge Care Plan Diagnosis: (1) Primary localized osteoarthrosis, lower leg Your Health Problems Are: Difficulty with ADL Goals to Promote Your Health * To prevent worsening of your condition and complications * To maintain your health at the optimal level Directions to Meet Your Goals Take your medications as prescribed Follow your dietary instruction Follow activity as directed Keep your appointments as scheduled Take your immunizations and boosters as scheduled If your symptoms worsen call your PCP, if no PCP go to Urgent Care Center or Emergency Room Smoking is Dangerous to Your Health. Avoid second hand smoke Call the 24-hour hour crisis hotline for domestic abuse at Rod Kirkpatrick Jul 16, 2017 08:21
--- NOTE | 2017-07-16 08:22 | HHI.FF ---
Face to Face Verification Diagnosis: (1) Primary localized osteoarthrosis, lower leg Physical Therapy Gait training, Safety evaluation, Transfer training, bed to chair Knee: Total knee, Protocol: Left, Full weight bearing Left LE Weight Bearing: WB as tolerated Nursing RN: 3 days/week x 2 weeks Nursing: Prasanth teaching, Dressing changes Dressing Changes: Daily dressing change I have seen patient Thomas Izaguirre on 07/16/17. My clinical findings support the need for the requested home health care services because: Limited ability to care for self High risk of falls I certify that my clinical findings support that this patient is homebound because: Post-op weakness Unsteady gait/balance Rod Kirkpatrick Jul 16, 2017 08:21
[2017-07-16] MEDS: SODIUM CHLORIDE 0.9% FLUSH 5 ML FLUSH IVF SCH ×2 (09:00→22:15)
[2017-07-16] MEDS: amLODIPine BESYLATE 5 MG TAB PO SCH ×2 (09:59→10:07)
[2017-07-16] MEDS: HYDROmorphone HCL 4 MG TAB PO PRN ×4 (09:59→22:15)
[2017-07-16] MEDS: VANCOMYCIN INJ 1,000 MG in SODIUM CHLOR 0.9% 250 ML INJ 250 ML IV SCH (10:00)
[2017-07-16] MEDS: SODIUM CHLOR 0.9% 1000 ML INJ 1,000 ML IV SCH ×2 (10:07→16:05)
[2017-07-16] MEDS: ENOXAPARIN SODIUM 40 MG/0.4 ML SYRINGE SQ SCH (13:06)
--- NOTE | 2017-07-16 13:07 | HHI.PR ---
Subjective Remarks Follow-up hypertension. Pt seen and evaluated. Reported blood pressure "is coming down>' Pt reported elevations yesterday were "due to me" and "I'm high strung." Pt denied chest pain, shortness of breath, visual disturbance, or headache. He did endorse having a "sore throat" secondary to "having tube down my throat. " Otherwise, pt without complaints or concerns. Pt denied fever, chills, cough, shortness of breath, NVD. Per RN ( [place]) pt without acute issues overnight or since start of shift. Objective Vitals Vital Signs Date Time Temp Pulse Resp B/P (MAP) Pulse Ox O2 Delivery O2 Flow Rate FiO2 07/16/17 11:56 97.0 93 18 146/77 (100) 94 07/16/17 10:54 98 21 07/16/17 07:45 96.3 89 18 130/77 (94) 94 07/16/17 04:25 96.9 80 17 133/76 (95) 97 07/16/17 04:00 Room Air 07/16/17 00:40 96.8 80 18 148/76 (100) 97 07/16/17 00:00 Room Air 07/15/17 20:30 96.5 76 18 145/83 (103) 98 07/15/17 20:30 Room Air 07/15/17 20:00 80 16 126/78 (94) 99 Room Air 07/15/17 19:00 83 16 141/71 (94) 99 Nasal Cannula 2 07/15/17 18:00 81 16 118/69 (85) 99 Nasal Cannula 2 07/15/17 17:00 81 16 115/64 (81) 96 Nasal Cannula 2 07/15/17 16:45 81 16 123/66 (85) 98 Nasal Cannula 2 07/15/17 16:30 83 16 116/65 (82) 92 Room Air 07/15/17 16:15 98 16 119/62 (81) 96 Room Air 07/15/17 16:00 87 16 130/75 (93) 99 Nasal Cannula 2 07/15/17 15:45 84 16 126/70 (88) 98 Nasal Cannula 3 07/15/17 15:30 86 16 119/65 (83) 97 Nasal Cannula 3 07/15/17 15:15 84 16 113/61 (78) 97 Nasal Cannula 3 07/15/17 15:00 84 16 125/64 (84) 99 Nasal Cannula 3 07/15/17 14:45 87 16 117/73 (88) 93 Nasal Cannula 3 07/15/17 14:30 97 20 125/72 (89) 93 Nasal Cannula 3 07/15/17 14:15 97 18 101/50 (67) 94 Nasal Cannula 3 07/15/17 14:00 97 16 100/55 (70) 95 Nasal Cannula 3 07/15/17 13:54 98.1 99 14 96/50 (65) 94 Nasal Cannula 3 I/O 07/15/17 07/15/17 07/15/17 07/16/17 07/16/17 07/16/17 07:00 15:00 23:00 07:00 15:00 23:00 Intake Total 350 ml 1050 ml 1268 ml 749 ml Output Total 850 ml 450 ml Balance 350 ml 200 ml 818 ml 749 ml Intake Oral 600 ml 240 ml IV Total 350 ml 450 ml 1028 ml 749 ml Output Urine Total 850 ml 450 ml # Bowel Movements 0 0 Result Diagram: 07/16/1771007/16/17710 Objective Remarks GENERAL: Pt encountered laying a bed, left knee propped up. SKIN: Warm and dry. Johnny wrap noted around left knee. Right knee evidenced a well healed surgical scar. HEAD: Normocephalic. EYES: No scleral icterus. No injection or drainage. NECK: Supple, trachea midline. No lymphadenopathy. CARDIOVASCULAR: Regular rate and rhythm without murmurs, gallops, or rubs. RESPIRATORY: Breath sounds equal bilaterally. No accessory muscle use. GASTROINTESTINAL: Abdomen soft, non-tender, nondistended. MUSCULOSKELETAL: No cyanosis, or edema. PSYCHIATRIC: Alert and oriented x 3. No overt signs of depression./ anxiety.pleasant and cooperative. Procedures Total left knee arthroplasty. Medications and IVs Current Medications Medications (Trade) Dose Ordered Sig/Cesar Route Start Time Stop Time Status Last Admin (Norvasc) 5 mg DAILY PO 07/15/17 10:00 07/16/17 10:07 Sodium Chloride 1,000 ml @ 100 mls/hr Q10H IV 07/15/17 10:30 07/16/17 10:07 (NS Flush) 2 ml UNSCH PRN IVF 07/15/17 08:45 (NS Flush) 2 ml BID IVF 07/15/17 09:00 (Lovenox Inj) 40 mg Q24H SQ 07/16/17 13:00 07/25/17 13:01 (Theragran M Tab) 1 tab BID PO 07/16/17 21:00 09/14/17 20:59 (Zofran Inj) 4 mg Q6H PRN IVP 07/15/17 08:45 07/15/17 22:14 (Colace) 100 mg BID PO 07/16/17 21:00 (Ambien) 5 mg HS PRN PO 07/15/17 08:45 (Dulcolax Supp) 10 mg DAILY PRN ID 07/15/17 08:45 (Benadryl Inj) 25 mg Q6H PRN IV 07/15/17 08:45 Lactated Ringer's 1,000 ml @ 30 mls/hr Q24H PRN IV 07/15/17 10:00 07/18/17 09:59 Sodium Chloride 500 ml @ 30 mls/hr [id number] PRN IV 07/15/17 10:00 07/18/17 09:59 (Lopressor) 25 mg OFFICE MESSENGER HELPER PRN PO 07/15/17 10:00 07/18/17 09:59 (Betadine 5% Antisepsis Kit) 1 applic OFFICE MESSENGER HELPER PRN EACH NARE 07/15/17 10:00 07/18/17 09:59 07/15/17 09:00 (Chlorhexidine 2% Cloth) 3 pack OFFICE MESSENGER HELPER PRN TOPICAL 07/15/17 10:00 07/18/17 09:59 07/15/17 08:55 (NovoLIN R INJ) See Protocol Table ... OFFICE MESSENGER HELPER PRN SQ 07/15/17 10:00 07/18/17 09:59 Miscellaneous Information ALL NURSING DEPARTME... UNSCH PRN .XX 07/15/17 13:54 07/16/17 13:53 (Dilaudid) 4 mg Q4H PRN PO 07/16/17 10:00 07/19/17 08:00 07/16/17 09:59 A/P Assessment and Plan 61-year-old male with past medical history significant for osteoarthritis who failed attempts at conservative management and underwent an elective left total knee replacement surgery performed by Dr. Guzman who has consulted hospitalist services for medical management of patient's chronic medical conditions including hypertension and chronic anemia. Hypertension: monitoring. Continue home regimen. Diastolic values trending downward. Sore throat: lozenges ordered. Osteoarthritis left knee failed attempts at conservative treatment status post elective left total knee replacement surgery Management per orthopedic team Began participation with PT/OT Pain management with [place] and IV morphine as needed. Patient underwent preoperative nerve block. Bowel regimen. Monitor H&H postoperatively Postop wound care Hypertension, controlled Continue patient's home dose of amlodipine 5 mg by mouth daily Monitor BP DVT prophylaxis Per orthopedic - Lovenox 40 mg subcutaneous every 2410 doses Devin Rogers Jr. Jul 16, 2017 13:07
[2017-07-16] MEDS ORDERED: BENZOCAINE-MENTHOL (SUGAR FREE) 15 MG-3.6 MG LOZENGE BUCCAL PRN (13:15)
[2017-07-16] MEDS: MULTIVITAMINS/MINERALS THERAPEUTIC TAB PO SCH (22:14)
[2017-07-16] MEDS: DOCUSATE SODIUM 100 MG CAP PO SCH (22:15)
[2017-07-16] MEDS: POLYETHYLENE GLYCOL 17 GM PKG PO SCH (22:16)
[2017-07-17 00:25] VITALS: BP 143/80; PULSE 87; RESP 18; TEMP 96.7; O2SAT 95
[2017-07-17] MEDS: SODIUM CHLOR 0.9% 1000 ML INJ 1,000 ML IV SCH ×3 (02:30→21:09)
[2017-07-17] MEDS: HYDROmorphone HCL 4 MG TAB PO PRN ×6 (02:47→22:40)
[2017-07-17 06:04] LABS: HEMATOCRIT 38.1 % (39.0-51.0); MEAN CELL VOLUME 84.9 FL (80.0-100.0); MEAN CORPUSCULAR HEMOGLOBIN 28.6 PG (27.0-34.0); MEAN CORPUSCULAR HGB CONC 33.7 % (32.0-36.0); PLATELET COUNT 216 TH/MM3 (150-450); RED BLOOD COUNT 4.48 MIL/MM3 (4.50-5.90); RED CELL DISTRIBUTION WIDTH 15.3 % (11.6-17.2); REVIEW FLAG FINAL; WHITE BLOOD COUNT 12.6 TH/MM3 (4.0-11.0)
[2017-07-17 06:26] LABS: BICARBONATE 26.7 MEQ/L (21.0-32.0); POTASSIUM 3.9 MEQ/L (3.5-5.1)
--- NOTE | 2017-07-17 07:52 | PD.ORT.PN ---
Subjective Post Op Day #: 2 Subjective Remarks thigh still painful. knee doing ok. not able to sleep last night. denies cp and sob. Objective Vitals Vital Signs Date Time Temp Pulse Resp B/P (MAP) Pulse Ox O2 Delivery O2 Flow Rate FiO2 07/17/17 00:25 96.7 87 18 143/80 (101) 95 07/16/17 21:00 97.8 91 17 155/75 (101) 97 07/16/17 19:10 Room Air 07/16/17 16:00 97.6 87 18 140/86 (104) 96 07/16/17 11:56 97.0 93 18 146/77 (100) 94 07/16/17 10:54 98 21 07/16/17 10:00 Room Air I/O 07/16/17 07/16/17 07/16/17 07/17/17 07/17/17 07/17/17 07:00 15:00 23:00 07:00 15:00 23:00 Intake Total 1268 ml 1489 ml 480 ml 480 ml Output Total 450 ml Balance 818 ml 1489 ml 480 ml 480 ml Intake Oral 240 ml 740 ml 480 ml 480 ml IV Total 1028 ml 749 ml Output Urine Total 450 ml # Voids 3 2 2 # Bowel Movements 0 0 0 0 Result Diagram: 07/17/17 0545 07/17/17 0545 Objective Remarks sitting on bedside, nad incision no erythema, no drainage neg homans nvi Assessment & Plan Ortho Post Op Day #: 2 Problem List: Assessment and Plan s/p L TKA wbat daily dressing changes lovenox dilaudid, unable to take hydrocodone OOB and IS d/c planning home with [facility] and pt - probably Thurs. f/up dr. reid 2 weeks Rod Kirkpatrick Jul 17, 2017 07:52
[2017-07-17 08:00] VITALS: BP 144/90; PULSE 84; RESP 18; TEMP 98.2; O2SAT 95
[2017-07-17] MEDS: amLODIPine BESYLATE 5 MG TAB PO SCH (08:17)
[2017-07-17] MEDS: MULTIVITAMINS/MINERALS THERAPEUTIC TAB PO SCH ×2 (08:17→21:09)
[2017-07-17] MEDS: POLYETHYLENE GLYCOL 17 GM PKG PO SCH ×2 (08:17→21:09)
[2017-07-17] MEDS: DOCUSATE SODIUM 100 MG CAP PO SCH ×2 (08:17→21:09)
[2017-07-17] MEDS: SODIUM CHLORIDE 0.9% FLUSH 5 ML FLUSH IVF SCH ×2 (08:18→21:09)
[2017-07-17] MEDS ORDERED: diphenhydrAMINE HCL 50 MG CAP PO PRN (09:15)
--- NOTE | 2017-07-17 10:51 | HHI.PR ---
Subjective Remarks Follow-up hypertension. Pt seen and examined. Pt denied shortness of breath, chest pain, abdominal pain, NVD. He did endorse "phlegm production", poor sleep, and headache "which I think is due to not sleeping too much last night." Pt said he "can't take Ambien because it gives me really bad dreams". Pt said he takes Advil/Tylenol PM at home to help him sleep. He reported left thigh pain this morning and "I know it will go away in time." Pt spoke of having been seen by orthopedics this morning. Pt stated he understood "I am going to get sprung out of here tomorrow." Pt said he is using walker to ambulate and "I was able to bend my knee to 80 degrees last night." Pt shared picture on cell phone of his recent surgery and "there are 27 deann down my leg." Pt said he took picture this morning before bandage was re- applied. Per RN (Di) no acute issues overnight or since start of shift. Objective Vitals Vital Signs Date Time Temp Pulse Resp B/P (MAP) Pulse Ox O2 Delivery O2 Flow Rate FiO2 07/17/17 08:00 98.2 84 18 144/90 (108) 95 07/17/17 00:25 96.7 87 18 143/80 (101) 95 07/16/17 21:00 97.8 91 17 155/75 (101) 97 07/16/17 19:10 Room Air 07/16/17 16:00 97.6 87 18 140/86 (104) 96 07/16/17 11:56 97.0 93 18 146/77 (100) 94 07/16/17 10:54 98 21 I/O 07/16/17 07/16/17 07/16/17 07/17/17 07/17/17 07/17/17 07:00 15:00 23:00 07:00 15:00 23:00 Intake Total 1268 ml 1489 ml 480 ml 480 ml Output Total 450 ml Balance 818 ml 1489 ml 480 ml 480 ml Intake Oral 240 ml 740 ml 480 ml 480 ml IV Total 1028 ml 749 ml Output Urine Total 450 ml # Voids 3 2 2 # Bowel Movements 0 0 0 0 Result Diagram: 07/17/17 0545 07/17/17 0545 Objective Remarks GENERAL: Pt encountered laying a bed, awake and alert. SKIN: Warm and dry. Johnny wrap noted around left knee. HEAD: Normocephalic. EYES: No scleral icterus. No injection or drainage. NECK: Supple, trachea midline. No lymphadenopathy. CARDIOVASCULAR: Regular rate and rhythm without murmurs, gallops, or rubs. RESPIRATORY: Breath sounds equal bilaterally. No accessory muscle use. GASTROINTESTINAL: Abdomen soft, non-tender, nondistended. MUSCULOSKELETAL: No cyanosis, or edema. PSYCHIATRIC: Alert and oriented x 3. No overt signs of depression./ anxiety.Pleasant and cooperative. Procedures Total left knee arthroplasty. Medications and IVs Current Medications Medications (Trade) Dose Ordered Sig/Cesar Route Start Time Stop Time Status Last Admin (Norvasc) 5 mg DAILY PO 07/15/17 10:00 07/17/17 08:17 Sodium Chloride 1,000 ml @ 100 mls/hr Q10H IV 07/15/17 10:30 07/16/17 10:07 (NS Flush) 2 ml UNSCH PRN IVF 07/15/17 08:45 (NS Flush) 2 ml BID IVF 07/15/17 09:00 07/17/17 08:18 (Lovenox Inj) 40 mg Q24H SQ 07/16/17 13:00 07/25/17 13:01 07/16/17 13:06 (Theragran M Tab) 1 tab BID PO 07/16/17 21:00 09/14/17 20:59 07/17/17 08:17 (Zofran Inj) 4 mg Q6H PRN IVP 07/15/17 08:45 07/15/17 22:14 (Colace) 100 mg BID PO 07/16/17 21:00 07/17/17 08:17 (Ambien) 5 mg HS PRN PO 07/15/17 08:45 (Dulcolax Supp) 10 mg DAILY PRN [place] 07/15/17 08:45 (Benadryl Inj) 25 mg Q6H PRN IV 07/15/17 08:45 Lactated Ringer's 1,000 ml @ 30 mls/hr Q24H PRN IV 07/15/17 10:00 07/18/17 09:59 Sodium Chloride 500 ml @ 30 mls/hr [id number] PRN IV 07/15/17 10:00 07/18/17 09:59 (Lopressor) 25 mg SPACE OPERATIONS OFFICER PRN PO 07/15/17 10:00 07/18/17 09:59 (Betadine 5% Antisepsis Kit) 1 applic SPACE OPERATIONS OFFICER PRN EACH NARE 07/15/17 10:00 07/18/17 09:59 07/15/17 09:00 (Chlorhexidine 2% Cloth) 3 pack SPACE OPERATIONS OFFICER PRN TOPICAL 07/15/17 10:00 07/18/17 09:59 07/15/17 08:55 (NovoLIN R INJ) See Protocol Table ... SPACE OPERATIONS OFFICER PRN SQ 07/15/17 10:00 07/18/17 09:59 (Dilaudid) 4 mg Q4H PRN PO 07/16/17 10:00 07/19/17 08:00 07/17/17 10:30 (Cepacol Extra Fernanda (Sugar Free)) 1 lozenge Q2H PRN [place]CC[place] 07/16/17 13:15 07/17/17 06:26 (Miralax) 17 gm BID PO 07/16/17 21:00 07/17/17 08:17 (Benadryl) 50 mg HS PRN PO 07/17/17 09:15 (Mucinex Er) 600 mg BID PO 07/17/17 09:15 Urinary Catheter: No A/P Assessment and Plan 61-year-old male with past medical history significant for osteoarthritis who failed attempts at conservative management and underwent an elective left total knee replacement surgery performed by Dr. Guzman who has consulted hospitalist services for medical management of patient's chronic medical conditions including hypertension and chronic anemia. Hypertension: monitoring. Continue home regimen. Insomnia: Benadryl 50 mg qhs ordered. Phlegm production: Mucinex ordered Osteoarthritis left knee failed attempts at conservative treatment status post elective left total knee replacement surgery Management per orthopedic team Began participation with PT/OT Pain management with [place] and IV morphine as needed. Patient underwent preoperative nerve block. Bowel regimen. Monitor H&H postoperatively Postop wound care Hypertension, controlled Continue patient's home dose of amlodipine 5 mg by mouth daily Monitor BP Insomnia -Benadryl 50 mg q hs Phlegm in throat -Mucinex DVT prophylaxis Per orthopedic - Lovenox 40 mg subcutaneous every 2410 doses Discussed with pt, nursing staff and Dr. Simmons. Pt is cleared for discharge per Hospitalist group. Order placed by Dr. Simmons to that effect. Discharge Planning Home with home health when cleared by Orthopedics. Devin Rogers Jr. TEVIN Jul 17, 2017 10:51
[2017-07-17] MEDS: ENOXAPARIN SODIUM 40 MG/0.4 ML SYRINGE SQ SCH (11:52)
[2017-07-17] MEDS: guaiFENesin E.R. 600 MG TAB PO SCH ×2 (11:53→21:09)
[2017-07-17 12:00] VITALS: BP 143/78; PULSE 90; RESP 18; TEMP 98.1; O2SAT 94
[2017-07-17 16:00] VITALS: BP 137/83; PULSE 94; RESP 18; TEMP 98.7; O2SAT 96
[2017-07-17 20:20] VITALS: BP 161/90; PULSE 97; RESP 16; TEMP 98.9; O2SAT 95
[2017-07-18 00:30] VITALS: BP 145/85; PULSE 96; RESP 18; TEMP 99; O2SAT 96
[2017-07-18] MEDS: HYDROmorphone HCL 4 MG TAB PO PRN ×3 (02:39→10:33)
[2017-07-18 06:48] LABS: HEMATOCRIT 36.1 % (39.0-51.0); MEAN CELL VOLUME 85.7 FL (80.0-100.0); MEAN CORPUSCULAR HEMOGLOBIN 29.3 PG (27.0-34.0); MEAN CORPUSCULAR HGB CONC 34.2 % (32.0-36.0); PLATELET COUNT 191 TH/MM3 (150-450); RED BLOOD COUNT 4.22 MIL/MM3 (4.50-5.90); RED CELL DISTRIBUTION WIDTH 15.7 % (11.6-17.2); REVIEW FLAG FINAL; WHITE BLOOD COUNT 10.9 TH/MM3 (4.0-11.0)
[2017-07-18 07:06] LABS: BICARBONATE 28.8 MEQ/L (21.0-32.0); POTASSIUM 3.9 MEQ/L (3.5-5.1)
[2017-07-18 08:00] VITALS: BP 141/83; PULSE 108; RESP 18; TEMP 97; O2SAT 96
[2017-07-18] MEDS: SODIUM CHLOR 0.9% 1000 ML INJ 1,000 ML IV SCH (08:30)
[2017-07-18] MEDS: SODIUM CHLORIDE 0.9% FLUSH 5 ML FLUSH IVF SCH (09:00)
[2017-07-18] MEDS: guaiFENesin E.R. 600 MG TAB PO SCH (10:31)
[2017-07-18] MEDS: DOCUSATE SODIUM 100 MG CAP PO SCH (10:31)
[2017-07-18] MEDS: amLODIPine BESYLATE 5 MG TAB PO SCH (10:31)
[2017-07-18] MEDS: POLYETHYLENE GLYCOL 17 GM PKG PO SCH (10:32)
[2017-07-18] MEDS: MULTIVITAMINS/MINERALS THERAPEUTIC TAB PO SCH (10:32)
[2017-07-18] MEDS: ENOXAPARIN SODIUM 40 MG/0.4 ML SYRINGE SQ SCH (11:26)
[2017-07-18] MEDS ORDERED: DILA2TAB2 PO (11:59)
--- NOTE | 2017-07-18 12:23 | PD.ORT.PN ---
Subjective Post Op Day #: 3 Subjective Remarks thigh still painful. knee doing ok. ready to go home. denies cp and sob. Objective Vitals Vital Signs Date Time Temp Pulse Resp B/P (MAP) Pulse Ox O2 Delivery O2 Flow Rate FiO2 07/18/17 08:00 97.0 108 18 141/83 (102) 96 07/18/17 00:30 99.0 96 18 145/85 (105) 96 07/17/17 20:20 98.9 97 16 161/90 (113) 95 07/17/17 19:04 Room Air 07/17/17 16:00 98.7 94 18 137/83 (101) 96 I/O 07/17/17 07/17/17 07/17/17 07/18/17 07/18/17 07/18/17 06:59 14:59 22:59 06:59 14:59 22:59 Intake Total 480 ml 960 ml 480 ml 480 ml Output Total 650 ml Balance 480 ml 960 ml 480 ml -170 ml Intake Oral 480 ml 960 ml 480 ml 480 ml Output Urine Total 650 ml # Voids 2 6 2 # Bowel Movements 0 0 0 0 Result Diagram: 07/18/177 07/18/17456 Objective Remarks sitting on bedside, nad dressing c/d/i neg homans nvi Assessment & Plan Ortho Post Op Day #: 3 Problem List: Assessment and Plan s/p L TKA wbat daily dressing changes lovenox dilaudid, unable to take hydrocodone OOB and IS d/c planning home with hhc and pt - cleared today f/up dr. reid 2 weeks Rod Kirkpatrick Jul 18, 2017 12:23
--- NOTE | 2017-07-18 12:39 | HHI.PR ---
Subjective Remarks Follow-up hypertension. Pt seen and examined. Pt spoke of Mucinex ordered yesterday was effective on phlegm and "it helped me sleep. Pt stated he did not require "sleeping pill (Benadryl) last night." Pt denied shortness of breath, chest pain, abdominal pain, NVD. Pt reported he is to be discharged later this morning. Discussed labs with pt, he noted history of iron deficiency anemia. Stated he has "been off my iron pills for about two weeks." Pt reported he is ambulating with walker. Pain remains and stated he "talked to dr. guzman who told me part of the pain is due to compensating with my right leg for so long." Per RN (Conchis) no acute issues overnight or since start of shift. Objective Vitals Vital Signs Date Time Temp Pulse Resp B/P (MAP) Pulse Ox O2 Delivery O2 Flow Rate FiO2 07/18/17 08:00 97.0 108 18 141/83 (102) 96 07/18/17 00:30 99.0 96 18 145/85 (105) 96 07/17/17 20:20 98.9 97 16 161/90 (113) 95 07/17/17 19:04 Room Air 07/17/17 16:00 98.7 94 18 137/83 (101) 96 I/O 07/17/17 07/17/17 07/17/17 07/18/17 07/18/17 07/18/17 07:00 15:00 23:00 07:00 15:00 23:00 Intake Total 480 ml 960 ml 480 ml 480 ml Output Total 650 ml Balance 480 ml 960 ml 480 ml -170 ml Intake Oral 480 ml 960 ml 480 ml 480 ml Output Urine Total 650 ml # Voids 2 6 2 # Bowel Movements 0 0 0 0 Result Diagram: 07/18/17 0457 07/18/17 0457 Imaging Last Impressions Knee X-Ray 07/15/17 0833 Signed Impressions: Service Date/Time: Saturday, July 15, 2017 14:40 - CONCLUSION: Total arthroplasty in good position. Nelson Stevens Jr., MD Objective Remarks GENERAL: Pt encountered sitting in bedside chair, awake and alert. Visitor present. SKIN: Warm and dry. Staight bandage noted along incision. HEAD: Normocephalic. EYES: No scleral icterus. No injection or drainage. NECK: Supple, trachea midline. No lymphadenopathy. CARDIOVASCULAR: Regular rate and rhythm without murmurs, gallops, or rubs. RESPIRATORY: Breath sounds equal bilaterally. No accessory muscle use. GASTROINTESTINAL: Abdomen soft, non-tender, nondistended. MUSCULOSKELETAL: No cyanosis, or edema. PSYCHIATRIC: Alert and oriented x 3. No overt signs of depression./ anxiety.Pleasant and cooperative. Procedures Total left knee arthroplasty. Medications and IVs Current Medications Medications (Trade) Dose Ordered Sig/Cesar Route Start Time Stop Time Status Last Admin (Norvasc) 5 mg DAILY PO 07/15/17 10:00 07/18/17 10:31 Sodium Chloride 1,000 ml @ 100 mls/hr Q10H IV 07/15/17 10:30 07/16/17 10:07 (NS Flush) 2 ml UNSCH PRN IVF 07/15/17 08:45 (NS Flush) 2 ml BID IVF 07/15/17 09:00 07/17/17 08:18 (Lovenox Inj) 40 mg Q24H SQ 07/16/17 13:00 07/25/17 13:01 07/18/17 11:26 (Theragran M Tab) 1 tab BID PO 07/16/17 21:00 09/14/17 20:59 07/18/17 10:32 (Zofran Inj) 4 mg Q6H PRN IVP 07/15/17 08:45 07/15/17 22:14 (Colace) 100 mg BID PO 07/16/17 21:00 07/18/17 10:31 (Ambien) 5 mg HS PRN PO 07/15/17 08:45 (Dulcolax Supp) 10 mg DAILY PRN FL 07/15/17 08:45 (Benadryl Inj) 25 mg Q6H PRN IV 07/15/17 08:45 (Dilaudid) 4 mg Q4H PRN PO 07/16/17 10:00 07/19/17 08:00 07/18/17 10:33 (Cepacol Extra Fernanda (Sugar Free)) 1 lozenge Q2H PRN BUCCAL 07/16/17 13:15 07/17/17 06:26 (Miralax) 17 gm BID PO 07/16/17 21:00 07/18/17 10:32 (Benadryl) 50 mg HS PRN PO 07/17/17 09:15 (Mucinex Er) 600 mg BID PO 07/17/17 09:15 07/18/17 10:31 Urinary Catheter: No A/P Assessment and Plan 61-year-old male with past medical history significant for osteoarthritis who failed attempts at conservative management and underwent an elective left total knee replacement surgery performed by Dr. Guzman who has consulted hospitalist services for medical management of patient's chronic medical conditions including hypertension and chronic anemia. Hypertension: monitoring. Continue home regimen. Phlegm production: resolved. Anemia noted on labs: discussed with pt. Pt to resume home regimen of iron supplementation. Osteoarthritis left knee failed attempts at conservative treatment status post elective left total knee replacement surgery Management per orthopedic team Began participation with PT/OT Pain management with [place] and IV morphine as needed. Patient underwent preoperative nerve block. Bowel regimen. Monitor H&H postoperatively Postop wound care Hypertension, controlled Continue patient's home dose of amlodipine 5 mg by mouth daily Monitor BP Insomnia -Benadryl 50 mg q hs Phlegm in throat -Mucinex -resolved. DVT prophylaxis Per orthopedic - Lovenox 40 mg subcutaneous every 2410 doses Discussed with pt, nursing staff and Dr. Simmons. Pt is cleared for discharge per Hospitalist group. Discharge Planning Home with home health when cleared by Orthopedics. Devin Rogers Jr. Jul 18, 2017 12:39
--- NOTE | 2017-07-23 13:17 | MD ---
cc: ALICIA FIERRO M.D. ADMISSION DATE: 07/15/2017 DISCHARGE DATE: 07/18/2017 ADMISSION DIAGNOSIS Severe degenerative osteoarthritis left knee DISCHARGE DIAGNOSIS Severe degenerative osteoarthritis left knee HISTORY OF PRESENT ILLNESS Mr. Izaguirre is a 61-year-old male who has been and a longstanding patient Dr. Alicia Fierro at the [facility]. Currently he has undergone treatment for severe left knee pain which has been bothering him for greater than one year duration. The patient states he has been treated for this ailment for several years and currently has no alleviating treatment options. He notes his left knee is inhibiting his activities of daily living. He had severe constant aching sensation aggravated by weightbearing activities. He has no alleviating factors, although in the past, he has tried medications, bracing, physical therapy, home exercise program, weight loss attempts, multiple corticosteroid injections without relief of symptoms. The patient does have x-ray evidence of severe degenerative osteoarthritis of the left knee. The patient also has a history of a well-functioning right total knee arthroplasty. While in the office, the patient was counseled as to his diagnosis and treatment options. The risks, benefits, and indications of all were discussed. The patient did elect to proceed with surgical intervention to include a left total knee arthroplasty. DATE OF SURGERY 07/15/2017, left total knee arthroplasty. Postop after surgery, the patient admitted to [facility] where he received appropriate medical management, pain control, DVT prophylaxis as well as physical therapy. DISCHARGE Once being discharged from the hospital, the patient was cleared to go home where he will receive home health care and home physical therapy. He is in stable condition. He may weight-bear as tolerated. The patient is to receive daily dressing changes and has been instructed on appropriate wound care management. Patient has been provided prescriptions for pain control as well as DVT prophylaxis medications. He has also been provided a follow-up appointment approximately two weeks from his date of surgery. The patient has asked appropriate questions which have been answered. The patient has been discharged. Dictated by Alicia Kirkpatrick, TEVIN MD RICA Oreilly/BERNARDINO /1:33 PM /1:14 PM
== END 2017-07-18 12:46 | disposition home health service (06) | DRG 470 ==
LOC: HSDI 07-15 08:07 → N06A 07-15 20:30
PROVIDERS: ADMIT Orthopaedic Surgery Sports Medicine; ATTEND Orthopaedic Surgery Sports Medicine
PROC: 3E0T3CZ (ICD-10-PCS; 2017-07-15)
PROC: 0SRD0J9 Replacement of Left Knee Joint with Synthetic Substitute, Cemented, Open Approach (ICD-10-PCS; principal; 2017-07-15 11:42)
DX: M17.12 Unilateral primary osteoarthritis, left knee (principal); Z68.41 Body mass index [BMI] 40.0-44.9, adult; I10 Essential (primary) hypertension; M25.762 Osteophyte, left knee; M85.662 Other cyst of bone, left lower leg; D50.9 Iron deficiency anemia, unspecified; G47.00 Insomnia, unspecified; E66.9 Obesity, unspecified; J02.9 Acute pharyngitis, unspecified; M21.162 Varus deformity, not elsewhere classified, left knee; Z85.830 Personal history of malignant neoplasm of bone; Z86.14 Personal history of Methicillin resistant Staphylococcus aureus infection; Z86.718 Personal history of other venous thrombosis and embolism; Z87.891 Personal history of nicotine dependence; Z88.0 Allergy status to penicillin; Z88.5 Allergy status to narcotic agent
CPT/HCPCS: 73560; 80048; 82948; 85027; 86850; 86900; 86901; 94150; C1776; C9290; J0131; J0171; J0735; J1100; J1650; J1885; J2250; J2270; J2405; J2710; J2795; J3010; J3370; J7030; J7050; J7120; L1830